=== PATIENT | female | born 1995 | race American Indian/Alaskan Native ===

== ENCOUNTER 2020-10-27 16:53 | Emergency (ER) | payer SELFPAY ==
--- NOTE | 2020-10-27 17:41 | Emergency Department Report ---
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 Pt states that this occurred about 1hr [employer]. She states she was walking in her home when she tripped and was about to fall. She states she put her hand out to brace herself and when she did her hand struck a glass frame which broke. She was cut by piece of the glass. She is left hand dominant. She reports mainly pain and swelling. ED Review of Systems ROS: Stated complaint: CUT(L)HAND Other details as noted in HPI Comment: All other systems reviewed and negative Constitutional: denies: chills, fever Eyes: denies: eye pain, eye discharge, vision change ENT: denies: ear pain, throat pain, dental pain, hearing loss, epistaxis, congestion Respiratory: denies: cough, shortness of breath, SOB with exertion, SOB at rest, stridor, wheezing Cardiovascular: denies: chest pain, palpitations, dyspnea on exertion, orthopnea, edema, syncope, paroxysmal nocturnal dyspnea Gastrointestinal: denies: abdominal pain, nausea, diarrhea, constipation, hematemesis, melena, hematochezia Genitourinary: denies: urgency, dysuria, frequency, hematuria, discharge, abnormal menses, dyspareunia Musculoskeletal: denies: back pain, joint swelling, arthralgia Skin: denies: rash, lesions, change in color, change in hair/nails, pruritus Neurological: denies: headache, weakness, numbness, paresthesias, confusion, abnormal gait, vertigo Psychiatric: denies: anxiety, depression, auditory hallucinations, visual hallucinations, homicidal thoughts, suicidal thoughts Hematological/Lymphatic: denies: easy bleeding, easy bruising, swollen glands ED Past Medical Hx - Medications Home Medications: Home Medications Medication Instructions Recorded Confirmed Last Taken Type Ibuprofen [Motrin 600 MG tab] 600 mg PO Q8HR PRN #30 tablet 10/27/20 Unknown Rx Laceration Physical Exam - Exam General: Vital signs noted. No distress. Alert and acting appropriately. Wound Length (cm): 2 Laceration Location: Upper Extremity (thenar eminence) Laceration Exam: Yes Normal Distal CMS, No Foreign Body, No Exposed Tendon, Vessel, or Nerve, No Tendon Injury - Laceration /Wound Repair Left Palm Hand Wound Location: upper extremity (thenar eminence) Wound Length (cm): 2 Wound's Depth, Shape: superficial Wound Explored: clean Betadine Prep?: Yes Anesthesia: 1% Lidocaine Volume Anesthetic (ccs): 4 Wound Debrided: minimal Wound Repaired With: sutures Suture Size/Type: 4:0 Number of Sutures: 3 Layer Closure?: No Sterile Dressing Applied?: Yes ED Medical Decision Making - Radiology Data Radiology results: report reviewed Patient: SAGE CASAS MR#: [id number] 08 : 1995 Acct:[id number] Age/Sex: 25 / F ADM Date: 10/27/20 Loc: ED Attending Dr: Ordering Physician: TATIANA CORLEY Date of Service: 10/27/20 Procedure(s): XR hand 3+V LT Accession Number(s): [id number] cc: TATIANA CORLEY Fluoro Time In Minutes: Left hand 3 views INDICATION: Left hand pain IMPRESSION: No fracture or subluxation of the left hand is identified. No radiopaque foreign body identified. Signer Name: Chaitanya Griffin MD Signed: 10/27/2020 6:13 PM Workstation Name: [id number] Transcribed By: BC Dictated By: Chaitanya Griffin MD Electronically Authenticated By: Chaitanya Griffin MD Signed Date/Time: 10/27/201812 DD/ 12 TD/TT: - Medical Decision Making X-ray shows nothing acute. Wound repaired by me, see procedure note for detail. Wound care discussed with patient. Signs and symptoms of infection also discussed with patient and informed that she'll need to return if any of the signs and symptoms develop for reevaluation. Patient expressed understanding of all instructions and agree with plan. Patient was stable at time of discharge. Critical care attestation.: If time is entered above; I have spent that time in minutes in the direct care of this critically ill patient, excluding procedure time. ED Disposition Clinical Impression: Laceration of hand Disposition: 01 HOME / SELF CARE / HOMELESS Is pt being admited?: No Does the pt Need Aspirin: No Condition: Stable Instructions: Laceration Care, Adult, [id number], Sutures, Rober, or Adhesive Wound Closure Additional Instructions: Keep wound clean daily with soap and water. Do not use peroxide or alcohol. Wash briefly, once a day unless your hand is soiled. Dry the wound well after each cleaning. You can apply a thin layer of Neosporin after each cleaning. Take the ibuprofen as prescribed to help with pain. Sutures will need to be removed in about 10 days. I recommend that you do not soak your hand in water for long period of time. Return to the ER if there is any signs and symptoms of infection such as pus drainage, increased pain or redness. Prescriptions: Ibuprofen [Motrin 600 MG tab] 600 mg PO Q8HR PRN #30 tablet PRN Reason: Pain Referrals: [facility] [Provider Group] - 3-5 Days Time of Disposition: 19:00
[2020-10-27 17:43] VITALS: BP 150/90
--- NOTE | 2020-10-27 18:18 | XRay Report ---
Left hand 3 views INDICATION: Left hand pain IMPRESSION: No fracture or subluxation of the left hand is identified. No radiopaque foreign body mable ntified. Signer Name: Chaitanya Griffin MD Signed: 10/27/2020 6:13 PM Workstation Name: [id number]
[2020-10-27] MEDS ORDERED: NEOMY 3.5 MG/BACIT 400 UNITS/POLY B 5000 UNITS/GM OINT PACKET TP ONE (18:56)
[2020-10-27] MEDS ORDERED: TETANUS,DIPH,PERTUSS(ACELL) VACCINE 0.5 ML SYRINGE IM ONE (19:00)
[2020-10-27] MEDS ORDERED: LIDOCAINE (1%) 10 MG/1 ML VIAL 20 ML MDV INFILTRATI ONE (19:00)
[2020-10-27] MEDS ORDERED: IBUPROFEN 600 MG TAB PO ONE (19:00)
== END 2020-10-27 19:30 | disposition home or self-care (01) ==
LOC: ED 16:53
DX: S61.412A Laceration without foreign body of left hand, initial encounter (principal); W01.0XXA Fall on same level from slipping, tripping and stumbling without subsequent striking against object, initial encounter; Y93.89 Activity, other specified; Y92.89 Other specified places as the place of occurrence of the external cause; Y99.8 Other external cause status
CPT/HCPCS: 12001; 73130; 90471; 90715; 99283; A6250

== ENCOUNTER 2020-11-07 17:59 | Emergency (ER) | payer SELFPAY ==
[2020-11-07 18:53] VITALS: BP 150/59
--- NOTE | 2020-11-07 19:00 | Emergency Department Report ---
ED General Adult HPI - General Chief complaint: Laceration/Recheck/Suture Stated complaint: suture removal Time Seen by Provider: 11/07/20 18:51 Source: patient Mode of arrival: Ambulatory Limitations: No Limitations - History of Present Illness Initial comments: Patient is 25 years old female with no significant past medical history. Patient presented to the ER for removal of a left hand suture that placed approximately 12 days ago. Patient denied any fever or chills. Patient added that she has been having some cough and shortness of breath. Patient also stated that she lost her taste and smell. - Related Data Previous Rx's Medication Instructions Recorded Last Taken Type Ibuprofen [Motrin 600 MG tab] 600 mg PO Q8HR PRN #30 tablet 10/27/20 Unknown Rx Allergies Allergy/AdvReac Type Severity Reaction Status Date / Time No Known Allergies Allergy Verified 10/27/20 18:40 ED Review of Systems ROS: Stated complaint: suture removal Other details as noted in HPI Comment: All other systems reviewed and negative Constitutional: denies: chills, fever Cardiovascular: denies: chest pain ED Past Medical Hx - Past Medical History Previous Medical History?: No - Surgical History Past Surgical History?: No - Social History Smoking Status: Unknown if ever smoked - Medications Home Medications: Home Medications Medication Instructions Recorded Confirmed Last Taken Type Ibuprofen [Motrin 600 MG tab] 600 mg PO Q8HR PRN #30 tablet 10/27/20 Unknown Rx ED Physical Exam - General Limitations: No Limitations General appearance: alert, in no apparent distress - Head Head exam: Present: atraumatic, normocephalic - Respiratory Respiratory exam: Present: normal lung sounds bilaterally - Cardiovascular Cardiovascular Exam: Present: normal heart sounds - Extremities Exam Extremities exam: Present: other (Left hand wound appear healing well with no erythema, redness or clinical evidence of infection.) - Neurological Exam Neurological exam: Present: alert, oriented X3 ED Course Vital Signs 11/07/20 18:49 Temperature 98 F Pulse Rate 88 Respiratory 16 Rate Blood Pressure 150/59 [Left] O2 Sat by Pulse 100 Oximetry ED Medical Decision Making - Radiology Data Radiology results: report reviewed - Medical Decision Making Patient is 25 years old female with no significant past medical history. Elisha nt presented to the ER for removal of a left hand suture that placed approximately 12 days ago. Patient denied any fever or chills. Patient added that she has been having some cough and shortness of breath. Patient also stated that she lost her taste and smell. Chest x-ray is unremarkable. Patient advised to follow-up with her primary care physician and to get testing for COVID-19. Critical care attestation.: If time is entered above; I have spent that time in minutes in the direct care of this critically ill patient, excluding procedure time. ED Disposition Clinical Impression: Visit for suture removal Disposition: HOME / SELF CARE / HOMELESS Is pt being admited?: No Condition: Stable Instructions: Wound Closure Removal, Care After Referrals: PRIMARY CARE, [Referring] - 3-5 Days
--- NOTE | 2020-11-07 21:04 | XRay Report ---
CHEST 2 VIEWS INDICATION / CLINICAL INFORMATION: Productive cough on and off for one month. Recently lost sense of taste and smell for 2 days. No recent COVID test. COMPARISON: None available. FINDINGS: SUPPORT DEVICES: None. HEART / MEDIASTINUM: The heart size and pulmonary vasculature are normal. LUNGS / PLEURA: No significant pulmonary or pleural abnormality. No pneumothorax. ADDITIONAL FINDINGS: No significant additional findings. IMPRESSION: No acute findings. There is no evidence of pneumonia. Signer Name: Alonso Gilbert MD Signed: 11/07/2020 9:00 PM Workstation Name: [id number]
== END 2020-11-07 21:47 | disposition home or self-care (01) ==
LOC: ED 17:59
DX: R05 Cough (principal); R06.02 Shortness of breath
CPT/HCPCS: 71046; 99283